=== PATIENT | male | born 1985 | race Caucasian/White ===

== ENCOUNTER 2020-03-07 09:13 | Inpatient (IN) ==
[2020-03-07] MEDS ORDERED: 0.9 % Sodium Chloride 1,000 ML IVC ONE (09:44)
[2020-03-07 10:39] LABS: INR 1.4; Prothrombin Time 15.5 Seconds (9.4-12.1)
[2020-03-07 10:42] LABS: Activated Partial Thrombo Time 31.2 Seconds (26.0-36.0)
[2020-03-07 10:53] LABS: Albumin 2.9 g/dL (3.5-5.7); Albumin/Globulin Ratio 0.6 (1.1-2.2); Bilirubin,Direct 1.3 mg/dL (0.0-0.2); Bilirubin,Indirect 0.6 mg/dL (0.0-1.0); Bilirubin,Total 1.9 mg/dL (0.3-1.0); Calcium 9.2 mg/dL (8.6-10.3); Globulin 4.7 g/dL (2.4-3.5); Magnesium 1.7 mg/dL (1.6-2.6); Phosphorous 4.7 mg/dL (2.7-4.5); Potassium 4.2 mEq/L (3.5-5.1); Total Protein 7.6 g/dL (6.4-8.9); Troponin I 0.03 ng/mL (< 0.04)
[2020-03-07] MEDS ORDERED: Piperacillin/Tazobactam 3.375 GM in 0.9 % Sodium Chloride Mini Bag 100 ML IVPB ONE (10:54)
[2020-03-07] MEDS ORDERED: Isovue-370 500 ML BOTTLE IVP ONE (10:58)
[2020-03-07] MEDS ORDERED: Vancomycin 2,000 MG/520 ML IV.SOLN IVPB ONE (10:59)
[2020-03-07 11:30] LABS: Mean Platelet Volume 12.5 fL (9.4-12.4); Nucleated Red Blood Cells 0.4 /100 WBC (0); Red Blood Count 5.33 M/mcL (4.19-5.50)
[2020-03-07 11:32] LABS: Hematocrit 48.7 % (37.5-50.1); Hemoglobin 15.7 g/dL (12.9-16.9); Immature Platelets 10.6 % (1.1-6.1); Mean Corpuscular HGB Conc 32.2 g/dL (31.6-35.5); Mean Corpuscular Hemoglobin 29.5 pg (28.0-33.3); Mean Corpuscular Volume 91.4 fL (83.0-100.0); Red Cell Distribution Width 14.4 % (11.5-14.5)
[2020-03-07 12:05] LABS: Platelet Count 61 K/mcL (140-400)
[2020-03-07 12:12] LABS: Dohle Bodies Present (Not Present); Eosinophils # 0.2 K/mcL (0.0-0.6); Lymphocytes # 0.8 K/mcL (0.6-4.6); Monocytes # 1.1 K/mcL (0.0-1.3); Neutrophils # 13.6 K/mcL (1.6-8.9); Platelet Estimate Decreased (Normal); Toxic Granulation Present (Not Present)
[2020-03-07] MEDS ORDERED: *HR* FentaNYL (PF) 100 MCG/2 ML VIAL IVP ONE (12:34)
[2020-03-07 12:49] LABS: Adenovirus Not Detected (Not Detect); Coronavirus 229E Not Detected (Not Detect); Coronavirus HKU1 Not Detected (Not Detect); Coronavirus NL63 Not Detected (Not Detect); Coronavirus OC43 Not Detected (Not Detect); Human Metapneumovirus Not Detected (Not Detect); Human Rhinovirus/Enterovirus Not Detected (Not Detect); Influenza A Subtype 2009 H1 Not Detected (Not Detect); SARS-CoV-2 Not Detected (Not Detect)
[2020-03-07 12:50] LABS: Bordetella Pertussis Not Detected (Not Detect); Chlamydophila pneumoniae Not Detected (Not Detect); Influenza B Not Detected (Not Detect); Mycoplasma pneumoniae Not Detected (Not Detect); Parainfluenza Virus 1 Not Detected (Not Detect); Parainfluenza Virus 2 Not Detected (Not Detect); Parainfluenza Virus 3 Not Detected (Not Detect); Parainfluenza Virus 4 Not Detected (Not Detect); Respiratory Syncytial Virus Not Detected (Not Detect)
[2020-03-07 13:04] LABS: Bacteria,Urine Few per hpf (None-Few); Bilirubin,Urine Negative (Negative); Blood,Urine Large (Negative); Clarity,Urine Turbid (Clear); Color,Urine Yellow (Yellow); Glucose,Urine (UA) Normal (Normal); Ketones,Urine Negative (Negative); Leukocyte Esterase,Urine Moderate (Negative); Mucus,Urine Few per lpf (None-Few); Nitrite,Urine Negative (Negative); Protein,Urine 200 mg/dL (Neg-Trace); RBC,Urine TNTC per hpf (0-3); Specific Gravity,Urine 1.024 (1.010-1.025); Squamous Epithelial Cell,Urine Few per hpf (None-Few); WBC,Urine 50-100 per hpf (0-3)
[2020-03-07] MEDS ORDERED: 0.9 % Sodium Chloride 1,000 ML IV ONE (13:37)
[2020-03-07] MEDS ORDERED: Dextrose Gel 15 GM/37.5 ML TUBE PO PRN ×2 (15:02)
[2020-03-07] MEDS ORDERED: *HR* Dextrose 50 % in Water (Vial) 50 ML VIAL IVP PRN (15:02)
[2020-03-07] MEDS ORDERED: D5% in Water 1,000 ML IVC PRN (15:02)
[2020-03-07] MEDS ORDERED: Naloxone 0.4 MG/ML INJ IVP PRN (15:18)
[2020-03-07] MEDS ORDERED: Ondansetron 4 MG/2 ML VIAL IVP PRN (15:18)
[2020-03-07] MEDS ORDERED: 0.9 % Sodium Chloride 1,000 ML IVC SCH ×2 (15:30→17:15)
[2020-03-07 16:00] LABS: Estimated Average Glucose 303 mg/dl
[2020-03-07] MEDS ORDERED: Insulin LISPRO 300 UNITS/3 ML VIAL SQ ONE (16:09)
[2020-03-07 16:12] LABS: Hepatitis B Surface Antigen Nonreactive (Nonreactive)
[2020-03-07] MEDS: Insulin LISPRO 300 UNITS/3 ML VIAL SQ SCH ×2 (16:19→20:45)
[2020-03-07 16:41] LABS: Hepatitis B Core IgM Nonreactive (Nonreactive)
[2020-03-07 16:43] LABS: Hepatitis A Antibody IgM Nonreactive (Nonreactive)
[2020-03-07] MEDS: Ipratropium 1 PUFF INHALER IH SCH ×2 (16:54→21:43)
[2020-03-07] MEDS ORDERED: *HR* Metoprolol 5 MG/5 ML VIAL IVP ONE (17:06)
[2020-03-07 19:41] LABS: Hepatitis C Virus Antibody Reactive (Nonreactive)
[2020-03-07 20:26] LABS: Calcium 8.9 mg/dL (8.6-10.3); Potassium 4.3 mEq/L (3.5-5.1)
[2020-03-07] MEDS: Piperacillin/Tazobactam 3.375 GM in 0.9 % Sodium Chloride Mini Bag 100 ML IVPB SCH (20:44)
[2020-03-07] MEDS: Insulin DETEMIR 100 UNIT/ML X5UNITS SQ SCH (20:46)
[2020-03-07 23:51] LABS: Acinetobacter baumannii by PCR Not Detected (Not Detect); Enterobacter cloacae Cmplx PCR Not Detected (Not Detect); Enterobacteriaceae by PCR Not Detected (Not Detect); Enterococcus by PCR Not Detected (Not Detect); Staphylococcus aureus by PCR DETECTED (Not Detect); Streptococcus agalactiae(B)PCR Not Detected (Not Detect); Streptococcus by PCR Not Detected (Not Detect); Streptococcus pneumoniae PCR Not Detected (Not Detect); Streptococcus pyogenes (A) PCR Not Detected (Not Detect); blaKPC Carbapenem-Resist Gene Not Detected (Not Detect); mecA Methicillin-Resist Gene DETECTED (Not Detect); vanA/B Vancomycin-Resist Genes Not Detected (Not Detect)
[2020-03-07 23:52] LABS: Candida albicans by PCR Not Detected (Not Detect); Candida glabrata by PCR Not Detected (Not Detect); Candida krusei by PCR Not Detected (Not Detect); Candida parapsilosis by PCR Not Detected (Not Detect); Candida tropicalis by PCR Not Detected (Not Detect); Escherichia coli by PCR Not Detected (Not Detect); Klebsiella oxytoca by PCR Not Detected (Not Detect); Klebsiella pneumoniae by PCR Not Detected (Not Detect); Proteus by PCR Not Detected (Not Detect); Pseudomonas aeruginosa by PCR Not Detected (Not Detect); Serratia marcescens by PCR Not Detected (Not Detect)
[2020-03-08] MEDS ORDERED: Vancomycin 2,000 MG/520 ML IV.SOLN IVPB ONE
[2020-03-08] MEDS: Acetaminophen 325 MG TABLET PO PRN ×3 (00:43→18:07)
[2020-03-08] MEDS: *HR* LORazepam 0.5 MG TABLET PO PRN (01:52)
[2020-03-08] MEDS: Piperacillin/Tazobactam 3.375 GM in 0.9 % Sodium Chloride Mini Bag 100 ML IVPB SCH ×3 (04:19→20:51)
[2020-03-08] MEDS: Ipratropium 1 PUFF INHALER IH SCH ×4 (04:22→22:40)
[2020-03-08 05:01] LABS: Basophils % 0.1 %; Hematocrit 39.7 % (37.5-50.1)
[2020-03-08 05:03] LABS: Eosinophils % 0.1 %; Hemoglobin 13.2 g/dL (12.9-16.9); INR 1.4; Immature Granulocytes % 3.6 % (0-4); Immature Platelets 11.4 % (1.1-6.1); Lymphocytes # 1.9 K/mcL (0.6-4.6); Lymphocytes % 11.8 %; Mean Corpuscular HGB Conc 33.2 g/dL (31.6-35.5); Mean Corpuscular Hemoglobin 29.3 pg (28.0-33.3); Mean Corpuscular Volume 88.2 fL (83.0-100.0); Mean Platelet Volume 13.1 fL (9.4-12.4); Monocytes # 1.6 K/mcL (0.0-1.3); Monocytes % 9.7 %; Nucleated Red Blood Cells 0.4 /100 WBC (0); Prothrombin Time 16.5 Seconds (9.4-12.1); Red Cell Distribution Width 14.1 % (11.5-14.5); Segmented Neutrophils % 74.7 %
[2020-03-08 05:08] LABS: Platelet Count 76 K/mcL (140-400)
[2020-03-08 05:17] LABS: Albumin 2.4 g/dL (3.5-5.7); Albumin/Globulin Ratio 0.6 (1.1-2.2); Bilirubin,Total 1.7 mg/dL (0.3-1.0); Calcium 8.4 mg/dL (8.6-10.3); Globulin 4.1 g/dL (2.4-3.5); Potassium 4.1 mEq/L (3.5-5.1); Total Protein 6.5 g/dL (6.4-8.9)
[2020-03-08 06:04] LABS: Poikilocytosis 1+ (Not Present); Reactive Lymphocytes Present (Not Present)
[2020-03-08 06:05] LABS: Platelet Estimate Decreased (Normal); Toxic Granulation Present (Not Present)
[2020-03-08] MEDS ORDERED: 0.9 % Sodium Chloride 1,000 ML IVC ONE ×2 (08:12→08:16)
[2020-03-08] MEDS: Insulin LISPRO 300 UNITS/3 ML VIAL SQ SCH ×4 (08:31→20:52)
[2020-03-08] MEDS ORDERED: Acetaminophen IV 1,000 MG/100 ML INFUS..BTL IVPB ONE (08:44)
[2020-03-08] MEDS ORDERED: Perflutren Lipid Microsphere 1.3 ML in 0.9 % Sodium Chloride 8.7 ML IVP PRN (09:13)
[2020-03-08 10:39] LABS: Adenovirus Not Detected (Not Detect); Bordetella Pertussis Not Detected (Not Detect); Chlamydophila pneumoniae Not Detected (Not Detect); Coronavirus 229E Not Detected (Not Detect); Coronavirus HKU1 Not Detected (Not Detect); Coronavirus NL63 Not Detected (Not Detect); Coronavirus OC43 Not Detected (Not Detect); Human Metapneumovirus Not Detected (Not Detect); Human Rhinovirus/Enterovirus Not Detected (Not Detect); Influenza A Subtype 2009 H1 Not Detected (Not Detect); Influenza B Not Detected (Not Detect); Mycoplasma pneumoniae Not Detected (Not Detect); Parainfluenza Virus 1 Not Detected (Not Detect); Parainfluenza Virus 2 Not Detected (Not Detect); Parainfluenza Virus 3 Not Detected (Not Detect); Parainfluenza Virus 4 Not Detected (Not Detect); Respiratory Syncytial Virus Not Detected (Not Detect); SARS-CoV-2 Not Detected (Not Detect)
[2020-03-08] MEDS: Vancomycin 1,500 MG/265 ML IV.SOLN IVPB SCH ×2 (12:30→23:45)
[2020-03-08 15:30] LABS: VBG HCO3 24 mEq/L (21-27); VBG PCO2 37 mmHg (41-51); VBG PH 7.42 pH Units (7.32-7.42); VBG PO2 163 mmHg (25-50)
[2020-03-08] MEDS: *HR* Heparin 5,000 UNIT/ML VIAL SQ SCH (17:21)
[2020-03-08] MEDS: Insulin DETEMIR 100 UNIT/ML X5UNITS SQ SCH (20:53)
[2020-03-08] MEDS: hydrALAZINE 25 MG TABLET PO SCH (23:45)
[2020-03-09] MEDS: Piperacillin/Tazobactam 3.375 GM in 0.9 % Sodium Chloride Mini Bag 100 ML IVPB SCH ×3 (03:00→20:22)
[2020-03-09] MEDS: Mag Hydrox/Al Hydrox/Simeth 30 ML UDC PO PRN ×2 (03:55→10:57)
[2020-03-09 04:13] LABS: Mean Corpuscular Hemoglobin 28.8 pg (28.0-33.3)
[2020-03-09 04:15] LABS: Hematocrit 39.4 % (37.5-50.1); Hemoglobin 12.9 g/dL (12.9-16.9); Immature Platelets 9.6 % (1.1-6.1); Mean Corpuscular HGB Conc 32.7 g/dL (31.6-35.5); Mean Corpuscular Volume 87.9 fL (83.0-100.0); Mean Platelet Volume 12.1 fL (9.4-12.4); Red Blood Count 4.48 M/mcL (4.19-5.50); Red Cell Distribution Width 14.2 % (11.5-14.5)
[2020-03-09] MEDS: Ipratropium 1 PUFF INHALER IH SCH (04:22)
[2020-03-09 04:26] LABS: VBG HCO3 24 mEq/L (21-27); VBG PCO2 33 mmHg (41-51); VBG PH 7.48 pH Units (7.32-7.42); VBG PO2 155 mmHg (25-50)
[2020-03-09 04:36] LABS: Bilirubin,Total 1.9 mg/dL (0.3-1.0); Calcium 8.4 mg/dL (8.6-10.3); Magnesium 2.7 mg/dL (1.6-2.6); Phosphorous 3.9 mg/dL (2.7-4.5); Potassium 4.1 mEq/L (3.5-5.1)
[2020-03-09] MEDS: hydrALAZINE 25 MG TABLET PO SCH ×3 (06:57→17:07)
[2020-03-09] MEDS: *HR* Heparin 5,000 UNIT/ML VIAL SQ SCH ×2 (06:57→17:06)
[2020-03-09] MEDS: Insulin LISPRO 300 UNITS/3 ML VIAL SQ SCH ×4 (09:19→20:26)
[2020-03-09] MEDS: Ipratropium/Albuterol Neb 3 ML IH SCH ×3 (11:10→22:21)
[2020-03-09] MEDS: Vancomycin 1,500 MG/265 ML IV.SOLN IVPB SCH (11:28)
[2020-03-09] MEDS: Acetaminophen 325 MG TABLET PO PRN ×2 (11:46→15:46)
[2020-03-09] MEDS: Pantoprazole 40 MG VIAL IVP PRN (14:01)
[2020-03-09] MEDS ORDERED: Acetaminophen IV 1,000 MG/100 ML INFUS..BTL IVPB ONE (16:20)
[2020-03-09] MEDS ORDERED: 0.9 % Sodium Chloride 500 ML IVC ONE (16:22)
[2020-03-09] MEDS: Insulin DETEMIR 100 UNIT/ML X5UNITS SQ SCH (20:23)
[2020-03-10] MEDS: hydrALAZINE 25 MG TABLET PO SCH ×5 (00:35→23:39)
[2020-03-10] MEDS: Vancomycin 1,500 MG/265 ML IV.SOLN IVPB SCH ×3 (00:35→23:39)
[2020-03-10] MEDS: Ipratropium/Albuterol Neb 3 ML IH SCH ×4 (04:12→22:21)
[2020-03-10 04:46] LABS: Red Blood Count 4.27 M/mcL (4.19-5.50); Red Cell Distribution Width 14.6 % (11.5-14.5)
[2020-03-10 04:48] LABS: Hematocrit 38.1 % (37.5-50.1); Hemoglobin 12.4 g/dL (12.9-16.9); Immature Platelets 11.8 % (1.1-6.1); Mean Corpuscular HGB Conc 32.5 g/dL (31.6-35.5); Mean Corpuscular Volume 89.2 fL (83.0-100.0); Mean Platelet Volume 12.6 fL (9.4-12.4); White Blood Count 20.4 K/mcL (4.3-11.1)
[2020-03-10] MEDS: Piperacillin/Tazobactam 3.375 GM in 0.9 % Sodium Chloride Mini Bag 100 ML IVPB SCH (04:53)
[2020-03-10 04:55] LABS: VBG HCO3 24 mEq/L (21-27); VBG PCO2 35 mmHg (41-51); VBG PH 7.44 pH Units (7.32-7.42); VBG PO2 238 mmHg (25-50)
[2020-03-10 05:03] LABS: Magnesium 2.6 mg/dL (1.6-2.6); Potassium 4.1 mEq/L (3.5-5.1)
[2020-03-10] MEDS: *HR* Heparin 5,000 UNIT/ML VIAL SQ SCH ×2 (05:52→17:12)
[2020-03-10] MEDS: Insulin LISPRO 300 UNITS/3 ML VIAL SQ SCH ×4 (07:55→21:24)
[2020-03-10] MEDS: Insulin DETEMIR 100 UNIT/ML X5UNITS SQ SCH (21:20)
[2020-03-10] MEDS: Acetaminophen 325 MG TABLET PO PRN (21:20)
[2020-03-10] MEDS: *HR* LORazepam 0.5 MG TABLET PO PRN (21:32)
[2020-03-11 01:50] LABS: Hematocrit 37.5 % (37.5-50.1); Hemoglobin 12.2 g/dL (12.9-16.9); Mean Corpuscular HGB Conc 32.5 g/dL (31.6-35.5); Mean Corpuscular Hemoglobin 29.3 pg (28.0-33.3); Mean Corpuscular Volume 89.9 fL (83.0-100.0); Mean Platelet Volume 12.8 fL (9.4-12.4); Red Blood Count 4.17 M/mcL (4.19-5.50); Red Cell Distribution Width 14.4 % (11.5-14.5)
[2020-03-11 01:51] LABS: Platelet Count 73 K/mcL (140-400)
[2020-03-11 02:13] LABS: BUN/Creatinine Ratio 35 (6-26); Blood Urea Nitrogen 51 mg/dL (6-20); Calcium 7.7 mg/dL (8.6-10.3); Carbon Dioxide 22 mEq/L (23-29); Chloride 97 mEq/L (98-107); Glucose 231 mg/dL (70-105); Osmolality,Calculated 283 (280-300); Potassium 4.2 mEq/L (3.5-5.1); Sodium 126 mEq/L (136-145); eGFR For African Americans > 60 (> 60); eGFR For Non-African Americans 55 (> 60)
[2020-03-11] MEDS: Ipratropium/Albuterol Neb 3 ML IH SCH ×4 (03:56→22:07)
[2020-03-11] MEDS: hydrALAZINE 25 MG TABLET PO SCH ×4 (06:34→23:35)
[2020-03-11] MEDS: *HR* Heparin 5,000 UNIT/ML VIAL SQ SCH ×2 (06:34→17:04)
[2020-03-11] MEDS: Insulin LISPRO 300 UNITS/3 ML VIAL SQ SCH ×4 (09:21→20:24)
[2020-03-11] MEDS: Acetaminophen 325 MG TABLET PO PRN ×2 (11:20→17:05)
[2020-03-11] MEDS: Vancomycin 1,500 MG/265 ML IV.SOLN IVPB SCH ×2 (11:21→23:35)
[2020-03-11] MEDS: Pantoprazole 40 MG VIAL IVP PRN (12:18)
[2020-03-11] MEDS: Furosemide 40 MG/4 ML VIAL IVP SCH ×2 (12:18→17:04)
[2020-03-11] MEDS: Insulin DETEMIR 100 UNIT/ML X5UNITS SQ SCH (20:25)
[2020-03-12] MEDS: Ipratropium/Albuterol Neb 3 ML IH SCH ×4 (04:08→22:21)
[2020-03-12 04:58] LABS: Hemoglobin 12.2 g/dL (12.9-16.9); Mean Corpuscular HGB Conc 32.4 g/dL (31.6-35.5); Red Cell Distribution Width 14.6 % (11.5-14.5)
[2020-03-12 05:00] LABS: Hematocrit 37.7 % (37.5-50.1); Immature Platelets 15.2 % (1.1-6.1); Mean Corpuscular Hemoglobin 28.5 pg (28.0-33.3); Mean Corpuscular Volume 88.1 fL (83.0-100.0); Mean Platelet Volume 12.7 fL (9.4-12.4); Red Blood Count 4.28 M/mcL (4.19-5.50)
[2020-03-12 05:17] LABS: BUN/Creatinine Ratio 34 (6-26); Blood Urea Nitrogen 45 mg/dL (6-20); Carbon Dioxide 22 mEq/L (23-29); Chloride 95 mEq/L (98-107); Glucose 196 mg/dL (70-105); Osmolality,Calculated 281 (280-300); Potassium 4.3 mEq/L (3.5-5.1); Sodium 127 mEq/L (136-145); eGFR For African Americans > 60 (> 60); eGFR For Non-African Americans > 60 (> 60)
[2020-03-12] MEDS: *HR* Heparin 5,000 UNIT/ML VIAL SQ SCH ×2 (05:59→16:47)
[2020-03-12] MEDS: Insulin LISPRO 300 UNITS/3 ML VIAL SQ SCH ×4 (06:00→21:00)
[2020-03-12] MEDS: hydrALAZINE 25 MG TABLET PO SCH ×3 (06:00→16:47)
[2020-03-12] MEDS: Furosemide 40 MG/4 ML VIAL IVP SCH ×2 (07:54→16:46)
[2020-03-12] MEDS ORDERED: Promethazine 6.25 MG in Water for inj. (sterile) 20 ML IVPB PRN (10:36)
[2020-03-12] MEDS ORDERED: Ondansetron 4 MG/2 ML VIAL IVP PRN (10:36)
[2020-03-12] MEDS ORDERED: *HR* HYDROmorphone PF 0.5 MG/0.5 ML SYRINGE IVP PRN (10:36)
[2020-03-12] MEDS ORDERED: *HR* OxyCODONE Immed Rel 5 MG TABLET PO PRN (10:36)
[2020-03-12] MEDS ORDERED: Ondansetron 4 MG/2 ML VIAL ONE ×2 (10:53→13:04)
[2020-03-12] MEDS ORDERED: Dexamethasone 4 MG/ML VIAL ONE ×3 (10:53→14:56)
[2020-03-12] MEDS ORDERED: *HR* FentaNYL (PF) 100 MCG/2 ML VIAL ONE ×2 (10:53→13:04)
[2020-03-12] MEDS ORDERED: Lidocaine -MPF 2% 2 ML VIAL ONE ×2 (10:53→13:04)
[2020-03-12] MEDS ORDERED: *HR* Midazolam HCl 2 MG/2 ML VIAL ONE (10:54)
[2020-03-12] MEDS ORDERED: *HR* Propofol 200 MG/20 ML VIAL IVP ONE ×3 (10:55→14:16)
[2020-03-12] MEDS ORDERED: *HR* Succinylcholine 200 MG/10 ML VIAL IVP ONE (10:56)
[2020-03-12] MEDS ORDERED: *HR* Rocuronium Bromide 50 MG/5 ML VIAL ONE (10:57)
[2020-03-12] MEDS ORDERED: Sugammadex Sodium 200 MG/2 ML VIAL IV ONE (10:59)
[2020-03-12] MEDS ORDERED: Lidocaine HCL 4 ML Topical Solution (Laryng-O-Jet Kit Sterile Pak) TP ONE ×2 (11:03→13:50)
[2020-03-12] MEDS: Acetaminophen 325 MG TABLET PO PRN ×2 (11:29→16:47)
[2020-03-12] MEDS: Vancomycin 1,500 MG/265 ML IV.SOLN IVPB SCH (11:35)
[2020-03-12] MEDS ORDERED: Gadolinium Contrast Agent (WT Based) IV PRN (12:10)
[2020-03-12] MEDS ORDERED: *HR* HYDROmorphone (PF) 1 MG/ML SYRINGE IVP ONE (15:40)
[2020-03-12] MEDS ORDERED: DAPTOmycin 650 MG in 0.9 % Sodium Chloride 100 ML IVPB SCH (19:30)
[2020-03-12] MEDS: Insulin DETEMIR 100 UNIT/ML X5UNITS SQ SCH (21:01)
[2020-03-13] MEDS: hydrALAZINE 25 MG TABLET PO SCH ×3 (00:57→12:37)
[2020-03-13] MEDS: Vancomycin 1,500 MG/265 ML IV.SOLN IVPB SCH ×2 (00:57→12:48)
[2020-03-13] MEDS: Ipratropium/Albuterol Neb 3 ML IH SCH ×2 (03:55→09:53)
[2020-03-13] MEDS: Mag Hydrox/Al Hydrox/Simeth 30 ML UDC PO PRN (07:00)
[2020-03-13] MEDS: *HR* Heparin 5,000 UNIT/ML VIAL SQ SCH (07:00)
[2020-03-13] MEDS: Insulin LISPRO 300 UNITS/3 ML VIAL SQ SCH ×2 (07:16→11:47)
[2020-03-13] MEDS: Furosemide 40 MG/4 ML VIAL IVP SCH (07:21)
[2020-03-13 08:35] LABS: Basophils # 0.1 K/mcL (0.0-0.2); Basophils % 0.6 %; Eosinophils % 0.1 %; Hematocrit 37.1 % (37.5-50.1); Hemoglobin 11.8 g/dL (12.9-16.9); Immature Granulocytes % 3.2 % (0-4); Lymphocytes # 1.9 K/mcL (0.6-4.6); Lymphocytes % 10.6 %; Mean Corpuscular HGB Conc 31.8 g/dL (31.6-35.5); Mean Corpuscular Hemoglobin 29.4 pg (28.0-33.3); Mean Corpuscular Volume 92.3 fL (83.0-100.0); Mean Platelet Volume 12.7 fL (9.4-12.4); Monocytes # 0.9 K/mcL (0.0-1.3); Monocytes % 4.7 %; Neutrophils # 14.8 K/mcL (1.6-8.9); Platelet Count 105 K/mcL (140-400); Red Blood Count 4.02 M/mcL (4.19-5.50); Red Cell Distribution Width 14.6 % (11.5-14.5); Segmented Neutrophils % 80.8 %; White Blood Count 18.3 K/mcL (4.3-11.1)
[2020-03-13 08:46] LABS: Alanine Aminotransferase 26 Units/L (7-52); Albumin/Globulin Ratio 0.4 (1.1-2.2); Alkaline Phosphatase 112 Units/L (34-104); Aspartate Amino Transferase 43 Units/L (13-39); BUN/Creatinine Ratio 40 (6-26); Bilirubin,Total 1.5 mg/dL (0.3-1.0); Blood Urea Nitrogen 42 mg/dL (6-20); Calcium 7.7 mg/dL (8.6-10.3); Carbon Dioxide 23 mEq/L (23-29); Chloride 94 mEq/L (98-107); Globulin 4.8 g/dL (2.4-3.5); Glucose 329 mg/dL (70-105); Osmolality,Calculated 283 (280-300); Potassium 4.1 mEq/L (3.5-5.1); Sodium 125 mEq/L (136-145); Total Protein 6.8 g/dL (6.4-8.9); eGFR For African Americans > 60 (> 60); eGFR For Non-African Americans > 60 (> 60)
[2020-03-13] MEDS ORDERED: Silvasorb 44.4 ML TUBE TP SCH (09:00)
[2020-03-13 11:17] VITALS: BP 142/85
[2020-03-14] MEDS ORDERED: Vancomycin 1,750 MG/517.5 ML IV.SOLN IVPB SCH
== END 2020-03-13 13:25 | disposition short-term general hospital (02) | DRG 720 ==
LOC: EMEROOARM 09:13 → CDU 09:13 → SUATTDRO 15:50 → 2NNU 03-08 16:33
PROVIDERS: ADMIT Internal Medicine; ATTEND Family Medicine

== ENCOUNTER 2020-06-25 22:46 | Inpatient (IN) ==
[2020-06-25] MEDS ORDERED: 0.9 % Sodium Chloride 1,000 ML IVC ONE (23:10)
[2020-06-25] MEDS ORDERED: Isovue-370 500 ML BOTTLE IVP ONE (23:21)
[2020-06-25] MEDS ORDERED: Vancomycin 1,500 MG/265 ML IV.SOLN IVPB ONE (23:24)
[2020-06-25] MEDS ORDERED: Piperacillin/Tazobactam 3.375 GM in 0.9 % Sodium Chloride Mini Bag 100 ML IVPB ONE (23:24)
[2020-06-25] MEDS ORDERED: Ondansetron 4 MG/2 ML VIAL IVP ONE (23:24)
[2020-06-25] MEDS ORDERED: Ipratropium/Albuterol Neb 3 ML IH ONE (23:25)
[2020-06-26 00:06] LABS: Bacteria,Urine Few per hpf (None-Few); Bilirubin,Urine Negative (Negative); Blood,Urine Large (Negative); Clarity,Urine Turbid (Clear); Color,Urine Light-Orange (Yellow); Glucose,Urine (UA) Normal (Normal); Ketones,Urine Negative (Negative); Leukocyte Esterase,Urine Moderate (Negative); Mucus,Urine Few per lpf (None-Few); Nitrite,Urine Negative (Negative); Protein,Urine 200 mg/dL (Neg-Trace); RBC,Urine TNTC per hpf (0-3); Specific Gravity,Urine 1.017 (1.010-1.025); Squamous Epithelial Cell,Urine Few per hpf (None-Few); Urobilinogen,Urine Normal (Normal); WBC,Urine 50-100 per hpf (0-3)
[2020-06-26] MEDS ORDERED: 0.9 % Sodium Chloride 1,000 ML IVC ONE (00:12)
[2020-06-26 00:18] LABS: Basophils % 0.2 %; Eosinophils % 0.1 %; Hematocrit 37.1 % (37.5-50.1); Hemoglobin 11.8 g/dL (12.9-16.9); Immature Granulocytes % 0.9 % (0-4); Lymphocytes # 1.4 K/mcL (0.6-4.6); Lymphocytes % 10.5 %; Mean Corpuscular HGB Conc 31.8 g/dL (31.6-35.5); Mean Corpuscular Hemoglobin 24.7 pg (28.0-33.3); Mean Corpuscular Volume 77.6 fL (83.0-100.0); Mean Platelet Volume 11.9 fL (9.4-12.4); Monocytes # 0.9 K/mcL (0.0-1.3); Monocytes % 6.5 %; Neutrophils # 10.9 K/mcL (1.6-8.9); Platelet Count 209 K/mcL (140-400); Red Blood Count 4.78 M/mcL (4.19-5.50); Segmented Neutrophils % 81.8 %; White Blood Count 13.3 K/mcL (4.3-11.1)
[2020-06-26 00:25] LABS: Acetaminophen < 10 mcg/mL (10-20); Salicylate < 2.5 mg/dL (15.0-30.0)
[2020-06-26 00:35] LABS: Alanine Aminotransferase 15 Units/L (7-52); Albumin 3.3 g/dL (3.5-5.7); Albumin/Globulin Ratio 0.6 (1.1-2.2); Alkaline Phosphatase 83 Units/L (34-104); Aspartate Amino Transferase 35 Units/L (13-39); BUN/Creatinine Ratio 17 (6-26); Bilirubin,Direct 0.5 mg/dL (0.0-0.2); Bilirubin,Indirect 0.3 mg/dL (0.0-1.0); Bilirubin,Total 0.8 mg/dL (0.3-1.0); Blood Urea Nitrogen 25 mg/dL (6-20); Calcium 10.1 mg/dL (8.6-10.3); Carbon Dioxide 20 mEq/L (23-29); Chloride 96 mEq/L (98-107); Globulin 5.7 g/dL (2.4-3.5); Glucose 160 mg/dL (70-105); Osmolality,Calculated 270 (280-300); Potassium 4.1 mEq/L (3.5-5.1); Sodium 126 mEq/L (136-145); Troponin I 0.43 ng/mL (< 0.04); eGFR For African Americans > 60 (> 60); eGFR For Non-African Americans 55 (> 60)
[2020-06-26] MEDS ORDERED: Naloxone 0.4 MG/ML INJ IVP PRN (01:59)
[2020-06-26] MEDS ORDERED: Ondansetron 4 MG/2 ML VIAL IVP PRN (01:59)
[2020-06-26] MEDS ORDERED: *HR* Promethazine 25 MG/ML VIAL IM PRN (01:59)
[2020-06-26] MEDS ORDERED: *HR* Heparin 5,000 UNIT/ML VIAL IVP PRN (02:08)
[2020-06-26] MEDS ORDERED: *HR* Heparin 5,000 UNIT/ML VIAL IVP ONE (02:08)
[2020-06-26 02:59] LABS: Basophils % 0.2 %; Eosinophils % 0.1 %; Hematocrit 32.4 % (37.5-50.1); Immature Granulocytes % 0.9 % (0-4); Lymphocytes # 1.2 K/mcL (0.6-4.6); Lymphocytes % 10.5 %; Mean Corpuscular HGB Conc 31.5 g/dL (31.6-35.5); Mean Corpuscular Hemoglobin 24.5 pg (28.0-33.3); Mean Corpuscular Volume 77.7 fL (83.0-100.0); Monocytes % 8.7 %; Platelet Count 164 K/mcL (140-400); Red Blood Count 4.17 M/mcL (4.19-5.50); Red Cell Distribution Width 16.1 % (11.5-14.5); Segmented Neutrophils % 79.6 %; White Blood Count 11.3 K/mcL (4.3-11.1)
[2020-06-26 03:00] LABS: Hemoglobin 10.2 g/dL (12.9-16.9)
[2020-06-26 03:14] LABS: INR 1.4; Prothrombin Time 16.4 Seconds (9.4-12.1)
[2020-06-26 03:43] LABS: BUN/Creatinine Ratio 18 (6-26); Blood Urea Nitrogen 25 mg/dL (6-20); Calcium 9.4 mg/dL (8.6-10.3); Carbon Dioxide 19 mEq/L (23-29); Chloride 100 mEq/L (98-107); Glucose 156 mg/dL (70-105); Magnesium 1.7 mg/dL (1.6-2.6); Osmolality,Calculated 272 (280-300); Phosphorous 2.9 mg/dL (2.7-4.5); Potassium 3.9 mEq/L (3.5-5.1); Sodium 127 mEq/L (136-145); Troponin I 0.54 ng/mL (< 0.04); eGFR For African Americans > 60 (> 60); eGFR For Non-African Americans 59 (> 60)
[2020-06-26] MEDS: Ringers Solution, Lactated 1,000 ML IVC SCH ×2 (03:48→11:19)
[2020-06-26] MEDS: Heparin 25,000UNIT/250ML 1/2NS 25,000 UNIT/250 ML IV.SOLN IVC SCH ×2 (03:50→21:47)
[2020-06-26 04:47] LABS: % Iron Saturation 6 % (20-55); C-Reactive Protein 212 mg/L (Less than 10); Iron 14 mcg/dL (65-175); Transferrin 180 mg/dL (203-362)
[2020-06-26 05:18] LABS: Folate 15.5 ng/mL (3.0-16.0)
[2020-06-26] MEDS: Acetaminophen 325 MG TABLET PO PRN ×2 (05:27→16:20)
[2020-06-26] MEDS: Aspirin Enteric Coated 325 MG Tablet PO SCH (07:48)
[2020-06-26] MEDS: Cefepime HCl 2,000 MG in Water for inj. (sterile) 20 ML IVP SCH ×2 (07:49→19:50)
[2020-06-26] MEDS ORDERED: Acetaminophen IV 1,000 MG/100 ML BAG IVPB ONE (09:54)
[2020-06-26] MEDS: *HR* Heparin 5,000 UNIT/ML VIAL IVP PRN ×2 (09:55→17:53)
[2020-06-26] MEDS ORDERED: *HR* Dextrose 50 % in Water (Vial) 50 ML VIAL IVP PRN (10:33)
[2020-06-26] MEDS ORDERED: D5% in Water 1,000 ML IVC PRN (10:33)
[2020-06-26] MEDS ORDERED: Dextrose Gel 15 GM/37.5 ML TUBE PO PRN ×2 (10:33)
[2020-06-26] MEDS: Insulin LISPRO 300 UNITS/3 ML VIAL SUBQ SCH ×3 (12:42→20:44)
[2020-06-26 12:44] LABS: Troponin I 0.45 ng/mL (< 0.04)
[2020-06-26] MEDS: Metoprolol XL (24 HR) Succ 25 MG TAB.ER.24H PO SCH (12:54)
[2020-06-26] MEDS: Vancomycin 1,500 MG/265 ML IV.SOLN IVPB SCH (12:54)
[2020-06-26 13:51] LABS: Adenovirus Not Detected (Not Detect); Bordetella Pertussis Not Detected (Not Detect); Chlamydophila pneumoniae Not Detected (Not Detect); Coronavirus 229E Not Detected (Not Detect); Coronavirus HKU1 Not Detected (Not Detect); Coronavirus NL63 Not Detected (Not Detect); Coronavirus OC43 Not Detected (Not Detect); Human Metapneumovirus Not Detected (Not Detect); Human Rhinovirus/Enterovirus Not Detected (Not Detect); Influenza A Subtype 2009 H1 Not Detected (Not Detect); Influenza B Not Detected (Not Detect); Mycoplasma pneumoniae Not Detected (Not Detect); Parainfluenza Virus 1 Not Detected (Not Detect); Parainfluenza Virus 2 Not Detected (Not Detect); Parainfluenza Virus 3 Not Detected (Not Detect); Parainfluenza Virus 4 Not Detected (Not Detect); Respiratory Syncytial Virus Not Detected (Not Detect)
[2020-06-26] MEDS ORDERED: Perflutren Lipid Microsphere 1.3 ML in 0.9 % Sodium Chloride 8.7 ML IVP PRN ×2 (16:08→16:50)
[2020-06-27] MEDS: Cefepime HCl 2,000 MG in Water for inj. (sterile) 20 ML IVP SCH ×4 (00:31→23:42)
[2020-06-27] MEDS: Vancomycin 1,500 MG/265 ML IV.SOLN IVPB SCH ×3 (00:35→23:43)
[2020-06-27] MEDS: Melatonin 3 MG TABLET PO PRN ×2 (01:04→20:54)
[2020-06-27] MEDS: Acetaminophen 325 MG TABLET PO PRN ×4 (01:05→20:54)
[2020-06-27 01:06] LABS: Basophils % 0.3 %; White Blood Count 6.3 K/mcL (4.3-11.1)
[2020-06-27 01:08] LABS: Eosinophils # 0.1 K/mcL (0.0-0.6); Eosinophils % 1.9 %; Hematocrit 31.1 % (37.5-50.1); Hemoglobin 9.6 g/dL (12.9-16.9); Immature Granulocytes % 0.8 % (0-4); Immature Platelets 6.1 % (1.1-6.1); Lymphocytes # 1.2 K/mcL (0.6-4.6); Lymphocytes % 18.6 %; Mean Corpuscular HGB Conc 30.9 g/dL (31.6-35.5); Mean Corpuscular Hemoglobin 24.3 pg (28.0-33.3); Mean Corpuscular Volume 78.7 fL (83.0-100.0); Mean Platelet Volume 10.9 fL (9.4-12.4); Monocytes # 0.8 K/mcL (0.0-1.3); Monocytes % 12.7 %; Neutrophils # 4.1 K/mcL (1.6-8.9); Platelet Count 137 K/mcL (140-400); Red Blood Count 3.95 M/mcL (4.19-5.50); Segmented Neutrophils % 65.7 %
[2020-06-27 01:27] LABS: BUN/Creatinine Ratio 22 (6-26); Blood Urea Nitrogen 27 mg/dL (6-20); Calcium 9.4 mg/dL (8.6-10.3); Carbon Dioxide 24 mEq/L (23-29); Chloride 103 mEq/L (98-107); Glucose 107 mg/dL (70-105); Osmolality,Calculated 280 (280-300); Sodium 132 mEq/L (136-145); eGFR For African Americans > 60 (> 60); eGFR For Non-African Americans > 60 (> 60)
[2020-06-27] MEDS: Ringers Solution, Lactated 1,000 ML IVC SCH ×3 (05:19→22:13)
[2020-06-27] MEDS: Insulin LISPRO 300 UNITS/3 ML VIAL SUBQ SCH ×3 (08:40→16:23)
[2020-06-27] MEDS: Metoprolol XL (24 HR) Succ 25 MG TAB.ER.24H PO SCH (08:43)
[2020-06-27] MEDS: Aspirin Enteric Coated 325 MG Tablet PO SCH (08:43)
[2020-06-27] MEDS: Heparin 25,000UNIT/250ML 1/2NS 25,000 UNIT/250 ML IV.SOLN IVC SCH (13:05)
[2020-06-27] MEDS ORDERED: Gadolinium Contrast Agent (WT Based) IV PRN (14:59)
[2020-06-27] MEDS: *HR* Heparin 5,000 UNIT/ML VIAL IVP PRN (19:38)
[2020-06-27] MEDS: *HR* HYDROcodone/Acet 5/325 mg TABLET PO PRN (20:13)
[2020-06-28] MEDS: *HR* HYDROcodone/Acet 5/325 mg TABLET PO PRN ×4 (01:14→18:32)
[2020-06-28 01:29] LABS: Basophils % 0.5 %; Eosinophils # 0.1 K/mcL (0.0-0.6); Eosinophils % 2.3 %; Hematocrit 29.4 % (37.5-50.1); Immature Granulocytes % 0.9 % (0-4); Lymphocytes # 0.7 K/mcL (0.6-4.6); Lymphocytes % 15.4 %; Mean Corpuscular HGB Conc 30.6 g/dL (31.6-35.5); Mean Corpuscular Hemoglobin 23.9 pg (28.0-33.3); Mean Corpuscular Volume 78.2 fL (83.0-100.0); Mean Platelet Volume 11.7 fL (9.4-12.4); Monocytes # 0.4 K/mcL (0.0-1.3); Monocytes % 9.2 %; Neutrophils # 3.1 K/mcL (1.6-8.9); Platelet Count 143 K/mcL (140-400); Red Blood Count 3.76 M/mcL (4.19-5.50); Segmented Neutrophils % 71.7 %; White Blood Count 4.3 K/mcL (4.3-11.1)
[2020-06-28 01:52] LABS: BUN/Creatinine Ratio 20 (6-26); Blood Urea Nitrogen 21 mg/dL (6-20); Calcium 9.2 mg/dL (8.6-10.3); Carbon Dioxide 20 mEq/L (23-29); Chloride 106 mEq/L (98-107); Glucose 167 mg/dL (70-105); Osmolality,Calculated 283 (280-300); Potassium 3.7 mEq/L (3.5-5.1); Sodium 133 mEq/L (136-145); eGFR For African Americans > 60 (> 60); eGFR For Non-African Americans > 60 (> 60)
[2020-06-28] MEDS: Insulin LISPRO 300 UNITS/3 ML VIAL SUBQ SCH ×5 (01:59→20:11)
[2020-06-28] MEDS: Heparin 25,000UNIT/250ML 1/2NS 25,000 UNIT/250 ML IV.SOLN IVC SCH ×2 (02:11→12:30)
[2020-06-28] MEDS: Acetaminophen 325 MG TABLET PO PRN (04:05)
[2020-06-28] MEDS: Ringers Solution, Lactated 1,000 ML IVC SCH ×3 (06:32→17:53)
[2020-06-28] MEDS: Metoprolol XL (24 HR) Succ 25 MG TAB.ER.24H PO SCH (09:13)
[2020-06-28] MEDS: Aspirin Enteric Coated 325 MG Tablet PO SCH (09:13)
[2020-06-28] MEDS: Cefepime HCl 2,000 MG in Water for inj. (sterile) 20 ML IVP SCH ×3 (09:13→23:09)
[2020-06-28] MEDS: Vancomycin 1,500 MG/265 ML IV.SOLN IVPB SCH ×2 (12:30→23:39)
[2020-06-28] MEDS: *HR* OxyCODONE Immed Rel 5 MG TABLET PO PRN ×2 (14:59→23:09)
[2020-06-28] MEDS: Cyanocobalamin (B-12) 1,000 MCG TABLET PO SCH (15:05)
[2020-06-28] MEDS: Sennosides/Docusate Sodium TABLET PO SCH (20:14)
[2020-06-29] MEDS: Ringers Solution, Lactated 1,000 ML IVC SCH ×5 (01:23→19:48)
[2020-06-29] MEDS: *HR* HYDROcodone/Acet 5/325 mg TABLET PO PRN ×2 (01:26→07:56)
[2020-06-29] MEDS: *HR* OxyCODONE Immed Rel 5 MG TABLET PO PRN ×4 (06:00→21:47)
[2020-06-29] MEDS: Insulin LISPRO 300 UNITS/3 ML VIAL SUBQ SCH ×4 (07:27→19:44)
[2020-06-29] MEDS: Cefepime HCl 2,000 MG in Water for inj. (sterile) 20 ML IVP SCH ×3 (07:54→23:05)
[2020-06-29] MEDS: Sennosides/Docusate Sodium TABLET PO SCH ×2 (07:56→19:43)
[2020-06-29] MEDS: Metoprolol XL (24 HR) Succ 25 MG TAB.ER.24H PO SCH (07:56)
[2020-06-29] MEDS: Cyanocobalamin (B-12) 1,000 MCG TABLET PO SCH (07:56)
[2020-06-29] MEDS: Aspirin Enteric Coated 325 MG Tablet PO SCH (07:56)
[2020-06-29 08:36] LABS: Basophils % 0.2 %; Eosinophils # 0.2 K/mcL (0.0-0.6); Eosinophils % 2.5 %; Hematocrit 30.1 % (37.5-50.1); Hemoglobin 9.4 g/dL (12.9-16.9); Immature Granulocytes % 1.2 % (0-4); Lymphocytes % 17.1 %; Mean Corpuscular HGB Conc 31.2 g/dL (31.6-35.5); Mean Corpuscular Hemoglobin 24.4 pg (28.0-33.3); Mean Platelet Volume 11.8 fL (9.4-12.4); Monocytes # 0.5 K/mcL (0.0-1.3); Monocytes % 8.8 %; Neutrophils # 4.2 K/mcL (1.6-8.9); Platelet Count 208 K/mcL (140-400); Red Blood Count 3.86 M/mcL (4.19-5.50); Red Cell Distribution Width 15.8 % (11.5-14.5); Segmented Neutrophils % 70.2 %; White Blood Count 5.9 K/mcL (4.3-11.1)
[2020-06-29 09:26] LABS: BUN/Creatinine Ratio 14 (6-26); Blood Urea Nitrogen 13 mg/dL (6-20); Calcium 9.4 mg/dL (8.6-10.3); Carbon Dioxide 23 mEq/L (23-29); Chloride 103 mEq/L (98-107); Glucose 117 mg/dL (70-105); Osmolality,Calculated 277 (280-300); Potassium 3.5 mEq/L (3.5-5.1); Sodium 133 mEq/L (136-145); eGFR For African Americans > 60 (> 60); eGFR For Non-African Americans > 60 (> 60)
[2020-06-29] MEDS: Vancomycin 1,500 MG/265 ML IV.SOLN IVPB SCH ×2 (11:43→23:05)
[2020-06-29] MEDS: Acetaminophen 325 MG TABLET PO PRN ×2 (15:17→23:15)
[2020-06-29 17:31] LABS: Influenza A PCR Negative (Negative); Influenza B PCR Negative (Negative); Resp. Syncytial Virus PCR Negative (Negative); SARS-CoV-2 by PCR (In House) Negative (Negative)
[2020-06-29] MEDS: Melatonin 3 MG TABLET PO PRN (21:47)
[2020-06-30] MEDS: *HR* HYDROcodone/Acet 5/325 mg TABLET PO PRN ×2 (01:56→12:44)
[2020-06-30 02:24] LABS: Basophils % 0.3 %; Eosinophils # 0.2 K/mcL (0.0-0.6); Eosinophils % 2.7 %; Hemoglobin 9.1 g/dL (12.9-16.9); Immature Granulocytes % 1.1 % (0-4); Lymphocytes # 1.3 K/mcL (0.6-4.6); Lymphocytes % 18.1 %; Mean Corpuscular HGB Conc 31.4 g/dL (31.6-35.5); Mean Corpuscular Hemoglobin 24.7 pg (28.0-33.3); Mean Corpuscular Volume 78.8 fL (83.0-100.0); Mean Platelet Volume 11.6 fL (9.4-12.4); Monocytes # 0.7 K/mcL (0.0-1.3); Monocytes % 9.5 %; Platelet Count 216 K/mcL (140-400); Red Blood Count 3.68 M/mcL (4.19-5.50); Red Cell Distribution Width 15.6 % (11.5-14.5); Segmented Neutrophils % 68.3 %; White Blood Count 7.3 K/mcL (4.3-11.1)
[2020-06-30 02:43] LABS: BUN/Creatinine Ratio 13 (6-26); Blood Urea Nitrogen 11 mg/dL (6-20); Calcium 9.3 mg/dL (8.6-10.3); Carbon Dioxide 22 mEq/L (23-29); Chloride 103 mEq/L (98-107); Glucose 105 mg/dL (70-105); Osmolality,Calculated 274 (280-300); Potassium 3.7 mEq/L (3.5-5.1); Sodium 132 mEq/L (136-145); eGFR For African Americans > 60 (> 60); eGFR For Non-African Americans > 60 (> 60)
[2020-06-30] MEDS: *HR* OxyCODONE Immed Rel 5 MG TABLET PO PRN ×3 (03:25→20:59)
[2020-06-30] MEDS: Ringers Solution, Lactated 1,000 ML IVC SCH ×2 (04:48→12:43)
[2020-06-30] MEDS: Insulin LISPRO 300 UNITS/3 ML VIAL SUBQ SCH ×4 (07:27→20:10)
[2020-06-30] MEDS: Metoprolol XL (24 HR) Succ 25 MG TAB.ER.24H PO SCH (07:35)
[2020-06-30] MEDS: Aspirin Enteric Coated 325 MG Tablet PO SCH (07:35)
[2020-06-30] MEDS: Cefepime HCl 2,000 MG in Water for inj. (sterile) 20 ML IVP SCH ×2 (07:36→16:44)
[2020-06-30] MEDS: Sennosides/Docusate Sodium TABLET PO SCH ×2 (07:36→20:59)
[2020-06-30] MEDS: Cyanocobalamin (B-12) 1,000 MCG TABLET PO SCH (07:36)
[2020-06-30] MEDS ORDERED: Lidocaine Viscous Oral Soln 15 ML SOLUTION MM PRN (08:22)
[2020-06-30] MEDS ORDERED: 0.9 % Sodium Chloride 500 ML IVC ONE (08:23)
[2020-06-30] MEDS ORDERED: *HR* Midazolam HCl 2 MG/2 ML VIAL IVP PRN (08:34)
[2020-06-30] MEDS ORDERED: *HR* Midazolam HCl 5 MG/5 ML VIAL IVP ONE (08:37)
[2020-06-30] MEDS: *HR* FentaNYL (PF) 100 MCG/2 ML VIAL IVP PRN ×3 (08:55→09:05)
[2020-06-30] MEDS: *HR* Midazolam HCl 5 MG/5 ML VIAL IVP ONE ×2 (09:00→09:05)
[2020-06-30 12:02] LABS: Vancomycin,Trough 18 mcg/mL (5-10)
[2020-06-30] MEDS: Vancomycin 1,500 MG/265 ML IV.SOLN IVPB SCH (12:42)
[2020-06-30 15:03] LABS: C-Reactive Protein 84 mg/L (Less than 10); Creatine Kinase < 10 Units/L (30-223)
[2020-06-30] MEDS: DAPTOmycin 750 MG in 0.9 % Sodium Chloride 100 ML IVPB SCH (16:44)
[2020-06-30] MEDS: Melatonin 3 MG TABLET PO PRN (20:59)
[2020-07-01] MEDS: Vancomycin 1,500 MG/265 ML IV.SOLN IVPB SCH ×2 (00:37→14:37)
[2020-07-01] MEDS: Cefepime HCl 2,000 MG in Water for inj. (sterile) 20 ML IVP SCH (00:37)
[2020-07-01] MEDS: *HR* OxyCODONE Immed Rel 5 MG TABLET PO PRN ×2 (01:09→14:34)
[2020-07-01 03:32] LABS: Basophils % 0.3 %; Eosinophils # 0.1 K/mcL (0.0-0.6); Eosinophils % 1.6 %; Hemoglobin 9.2 g/dL (12.9-16.9); Immature Granulocytes % 1.2 % (0-4); Lymphocytes # 1.5 K/mcL (0.6-4.6); Lymphocytes % 16.9 %; Mean Corpuscular HGB Conc 31.7 g/dL (31.6-35.5); Mean Corpuscular Hemoglobin 24.7 pg (28.0-33.3); Mean Corpuscular Volume 77.7 fL (83.0-100.0); Mean Platelet Volume 10.9 fL (9.4-12.4); Monocytes # 0.8 K/mcL (0.0-1.3); Monocytes % 9.2 %; Neutrophils # 6.3 K/mcL (1.6-8.9); Platelet Count 252 K/mcL (140-400); Red Blood Count 3.73 M/mcL (4.19-5.50); Red Cell Distribution Width 15.6 % (11.5-14.5); Segmented Neutrophils % 70.8 %; White Blood Count 8.9 K/mcL (4.3-11.1)
[2020-07-01 03:49] LABS: BUN/Creatinine Ratio 14 (6-26); Blood Urea Nitrogen 12 mg/dL (6-20); Calcium 9.5 mg/dL (8.6-10.3); Carbon Dioxide 23 mEq/L (23-29); Chloride 101 mEq/L (98-107); Glucose 104 mg/dL (70-105); Osmolality,Calculated 272 (280-300); Potassium 3.7 mEq/L (3.5-5.1); Sodium 131 mEq/L (136-145); eGFR For African Americans > 60 (> 60); eGFR For Non-African Americans > 60 (> 60)
[2020-07-01] MEDS: *HR* HYDROcodone/Acet 5/325 mg TABLET PO PRN ×2 (06:29→18:37)
[2020-07-01] MEDS: Insulin LISPRO 300 UNITS/3 ML VIAL SUBQ SCH ×4 (07:50→22:16)
[2020-07-01] MEDS: Sennosides/Docusate Sodium TABLET PO SCH ×2 (07:59→19:56)
[2020-07-01] MEDS: Cyanocobalamin (B-12) 1,000 MCG TABLET PO SCH (07:59)
[2020-07-01] MEDS: Metoprolol XL (24 HR) Succ 25 MG TAB.ER.24H PO SCH (07:59)
[2020-07-01] MEDS: Aspirin Enteric Coated 325 MG Tablet PO SCH (07:59)
[2020-07-01] MEDS ORDERED: *HR* Propofol 200 MG/20 ML VIAL IVP ONE (09:03)
[2020-07-01] MEDS ORDERED: Lidocaine -MPF 2% 5 ML VIAL SQ ONE (09:03)
[2020-07-01] MEDS ORDERED: *HR* Propofol 500 MG/50 ML BOTTLE IVP ONE (09:03)
[2020-07-01] MEDS ORDERED: *HR* Midazolam HCl 2 MG/2 ML VIAL ONE (10:58)
[2020-07-01] MEDS ORDERED: Lidocaine Viscous Oral Soln 15 ML SOLUTION MM PRN (11:04)
[2020-07-01] MEDS ORDERED: 0.9 % Sodium Chloride 500 ML IVC ONE (11:05)
[2020-07-01] MEDS: DAPTOmycin 750 MG in 0.9 % Sodium Chloride 100 ML IVPB SCH (16:37)
[2020-07-02] MEDS: *HR* OxyCODONE Immed Rel 5 MG TABLET PO PRN ×5 (00:09→23:47)
[2020-07-02] MEDS: Vancomycin 1,500 MG/265 ML IV.SOLN IVPB SCH ×3 (00:09→23:48)
[2020-07-02] MEDS: Melatonin 3 MG TABLET PO PRN ×2 (00:15→19:53)
[2020-07-02 04:05] LABS: Basophils # 0.1 K/mcL (0.0-0.2); Basophils % 0.5 %; Eosinophils # 0.2 K/mcL (0.0-0.6); Eosinophils % 1.7 %; Hemoglobin 9.4 g/dL (12.9-16.9); Immature Granulocytes % 1.7 % (0-4); Lymphocytes % 19.7 %; Mean Corpuscular HGB Conc 31.3 g/dL (31.6-35.5); Mean Corpuscular Hemoglobin 24.6 pg (28.0-33.3); Mean Corpuscular Volume 78.5 fL (83.0-100.0); Mean Platelet Volume 11.3 fL (9.4-12.4); Monocytes # 0.9 K/mcL (0.0-1.3); Monocytes % 8.4 %; Platelet Count 314 K/mcL (140-400); Red Blood Count 3.82 M/mcL (4.19-5.50); Red Cell Distribution Width 15.8 % (11.5-14.5); White Blood Count 10.3 K/mcL (4.3-11.1)
[2020-07-02 04:25] LABS: BUN/Creatinine Ratio 16 (6-26); Blood Urea Nitrogen 14 mg/dL (6-20); Calcium 9.6 mg/dL (8.6-10.3); Carbon Dioxide 23 mEq/L (23-29); Chloride 102 mEq/L (98-107); Glucose 106 mg/dL (70-105); Osmolality,Calculated 275 (280-300); Potassium 3.8 mEq/L (3.5-5.1); Sodium 132 mEq/L (136-145); eGFR For African Americans > 60 (> 60); eGFR For Non-African Americans > 60 (> 60)
[2020-07-02] MEDS: *HR* HYDROcodone/Acet 5/325 mg TABLET PO PRN (04:25)
[2020-07-02] MEDS: Insulin LISPRO 300 UNITS/3 ML VIAL SUBQ SCH ×4 (08:17→19:49)
[2020-07-02] MEDS: Aspirin Enteric Coated 325 MG Tablet PO SCH (08:58)
[2020-07-02] MEDS: Cyanocobalamin (B-12) 1,000 MCG TABLET PO SCH (08:58)
[2020-07-02] MEDS: Sennosides/Docusate Sodium TABLET PO SCH ×2 (08:58→19:49)
[2020-07-02] MEDS: Metoprolol XL (24 HR) Succ 25 MG TAB.ER.24H PO SCH (08:58)
[2020-07-02] MEDS: DAPTOmycin 750 MG in 0.9 % Sodium Chloride 100 ML IVPB SCH (15:57)
[2020-07-03] MEDS: *HR* OxyCODONE Immed Rel 5 MG TABLET PO PRN ×4 (04:54→19:32)
[2020-07-03] MEDS: Insulin LISPRO 300 UNITS/3 ML VIAL SUBQ SCH ×4 (07:21→19:32)
[2020-07-03] MEDS: Aspirin Enteric Coated 325 MG Tablet PO SCH (07:29)
[2020-07-03] MEDS: Sennosides/Docusate Sodium TABLET PO SCH ×2 (07:29→19:32)
[2020-07-03] MEDS: Metoprolol XL (24 HR) Succ 25 MG TAB.ER.24H PO SCH (07:29)
[2020-07-03] MEDS: Cyanocobalamin (B-12) 1,000 MCG TABLET PO SCH (07:29)
[2020-07-03] MEDS: Gabapentin 400 MG CAPSULE PO SCH ×3 (07:41→19:32)
[2020-07-03] MEDS: Vancomycin 1,500 MG/265 ML IV.SOLN IVPB SCH ×2 (12:17→17:31)
[2020-07-03] MEDS: DAPTOmycin 750 MG in 0.9 % Sodium Chloride 100 ML IVPB SCH (16:05)
[2020-07-03] MEDS: Melatonin 3 MG TABLET PO PRN (19:34)
[2020-07-04] MEDS: *HR* OxyCODONE Immed Rel 5 MG TABLET PO PRN ×4 (00:52→13:50)
[2020-07-04 01:20] LABS: Basophils % 0.4 %; Eosinophils # 0.2 K/mcL (0.0-0.6); Hematocrit 31.5 % (37.5-50.1); Hemoglobin 9.5 g/dL (12.9-16.9); Immature Granulocytes % 1.9 % (0-4); Lymphocytes # 2.5 K/mcL (0.6-4.6); Lymphocytes % 25.4 %; Mean Corpuscular HGB Conc 30.2 g/dL (31.6-35.5); Mean Corpuscular Hemoglobin 24.3 pg (28.0-33.3); Mean Corpuscular Volume 80.6 fL (83.0-100.0); Mean Platelet Volume 10.7 fL (9.4-12.4); Monocytes # 0.8 K/mcL (0.0-1.3); Monocytes % 8.1 %; Neutrophils # 6.2 K/mcL (1.6-8.9); Platelet Count 342 K/mcL (140-400); Red Blood Count 3.91 M/mcL (4.19-5.50); Red Cell Distribution Width 15.6 % (11.5-14.5); Segmented Neutrophils % 62.2 %; White Blood Count 9.9 K/mcL (4.3-11.1)
[2020-07-04 01:39] LABS: BUN/Creatinine Ratio 17 (6-26); Blood Urea Nitrogen 18 mg/dL (6-20); Calcium 9.5 mg/dL (8.6-10.3); Carbon Dioxide 25 mEq/L (23-29); Chloride 100 mEq/L (98-107); Glucose 111 mg/dL (70-105); Magnesium 1.7 mg/dL (1.6-2.6); Osmolality,Calculated 277 (280-300); Potassium 4.2 mEq/L (3.5-5.1); Sodium 132 mEq/L (136-145); eGFR For African Americans > 60 (> 60); eGFR For Non-African Americans > 60 (> 60)
[2020-07-04] MEDS: Vancomycin 1,500 MG/265 ML IV.SOLN IVPB SCH (05:38)
[2020-07-04] MEDS: Metoprolol XL (24 HR) Succ 25 MG TAB.ER.24H PO SCH (07:30)
[2020-07-04] MEDS: Aspirin Enteric Coated 325 MG Tablet PO SCH (07:30)
[2020-07-04] MEDS: Gabapentin 400 MG CAPSULE PO SCH (07:30)
[2020-07-04] MEDS: Cyanocobalamin (B-12) 1,000 MCG TABLET PO SCH (07:30)
[2020-07-04] MEDS: Insulin LISPRO 300 UNITS/3 ML VIAL SUBQ SCH ×2 (07:31→11:21)
[2020-07-04] MEDS: Sennosides/Docusate Sodium TABLET PO SCH (07:31)
[2020-07-04 10:48] VITALS: BP 143/86
[2020-07-04] MEDS: DAPTOmycin 750 MG in 0.9 % Sodium Chloride 100 ML IVPB SCH (14:26)
== END 2020-07-04 14:51 | disposition short-term general hospital (02) | DRG 720 ==
LOC: 2NNU 22:46 → EMEROOARM 22:46 → 2NNU 06-26 01:57 → SUATTDRO 06-27 09:54 → 2ANU 06-28 16:46
PROVIDERS: ADMIT Internal Medicine; ATTEND Pharmacist